=== PATIENT | female | born 1995 ===

== ENCOUNTER 2021-03-04 11:24 | Emergency (ER) | payer SELFPAY ==
[~2021-03-04] VITALS: Ht 152.4 cm; Wt 1.8 kg
[2021-03-04 15:29] LABS: BASO % 0.3 % (0.0-2.0); EOS # 0.1 K/mm3 (0.0-0.7); EOS % 0.6 % (0-4.0); GRAN # 8.5 K/mm3 (1.4-6.5); GRAN % 67.1 % (42.2-75.2); HEMATOCRIT 38.6 % (37.0-47.0); HEMOGLOBIN 12.6 g/dl (12.5-16.0); LYMPH # 3.2 K/mm3 (1.2-3.4); MEAN CELL VOLUME 84 fl (80.0-100.0); MEAN CORPUSCULAR HEMOGLOBIN 28 pg (27.0-31.0); MEAN CORPUSCULAR HGB CONC 33 g/dl (33.0-37.0); MEAN PLATELET VOLUME 10.8 fl (7.4-10.4); MONO # 0.9 K/mm3 (0.1-0.6); MONO % 6.8 % (1.7-9.3); PLATELET COUNT 328 K/mm3 (130-400); RED BLOOD COUNT 4.58 M/mm3 (4.10-5.30); REDCELL DISTRIBUTION WIDTH-CV 12.7 % (11.5-14.5)
[2021-03-04 17:35] LABS: COLLECTION METHOD CLEAN CATCH
[2021-03-04 17:54] LABS: MUCOUS Present (NOT PRESENT); PH 6 (5-8); SQUAMOUS EPITHELIAL 0-2 /hpf (0-10); URINE APPEARANCE Hazy (CLEAR/HAZY); URINE BACTERIA Moderate (NONE SEEN); URINE BILIRUBIN Negative (NEGATIVE); URINE BLOOD Negative (NEGATIVE); URINE COLOR Yellow (YELLOW); URINE GLUCOSE Negative (NEGATIVE); URINE KETONE 2+ (NEGATIVE); URINE LEUKOCYTE ESTERASE Negative (NEGATIVE); URINE NITRATE Negative (NEGATIVE); URINE PROTEIN(semi-quant) Negative (NEGATIVE); URINE UROBILINOGEN Negative (NEGATIVE)
[2021-03-04] MEDS ORDERED: CEFTIN500 MG PO (18:24)
[2021-03-04 19:00] VITALS: BP 102/66; PULSE 64; TEMP 98.3
== END 2021-03-04 19:00 | disposition home or self-care (01) ==
LOC: COL.ER 11:24
PROVIDERS: Physician Assistant
DX: O23.41 Unspecified infection of urinary tract in pregnancy, first trimester (principal); N39.0 Urinary tract infection, site not specified; Z3A.01 Less than 8 weeks gestation of pregnancy
CPT/HCPCS: J7030

== ENCOUNTER 2021-06-17 16:56 | Observation (INO) | payer SELFPAY ==
[2021-06-17] VITALS (7 sets, daily range): BP systolic 107–123; BP diastolic 61–75; PULSE 59–71; TEMP 97.9–98.7
[~2021-06-17] VITALS: Ht 154.9 cm; Wt 59.1 kg
[~2021-06-17 16:56] MED LIST: CEFTIN500 MG PO
--- NOTE | 2021-06-17 17:25 | NUR ---
Patient ambulates to LR2, changed into gown, [facility] doppler- 152bpm. Patient is 21.1 weeks and telugu speaking only. [employer] phone line was used. Patient states "I have had constant back pain since 0700 and nauseated". Patient denies any major complications with /UTI symptoms/constipation. Patient states "about a month ago I had some fluid come out that was clear and then again noticed some on Monday". Denies any current leaking of fluid/vaginal bleeding. Patient is very uncomfortable and can not rest in bed. Plan of care discussed. Lab at bedside to obtain blood. 1745: SVE- closed and amniotest negative. Patient voids and urine obtained for UA.
[2021-06-17 18:04] LABS: HEMOGLOBIN 11.5 g/dl (12.5-16.0); MEAN CELL VOLUME 84 fl (80.0-100.0); MEAN CORPUSCULAR HEMOGLOBIN 28 pg (27-31); MEAN CORPUSCULAR HGB CONC 33 g/dl (33.0-37.0); MEAN PLATELET VOLUME 11.3 fl (7.4-10.4); PLATELET COUNT 284 K/mm3 (130-400); RED BLOOD COUNT 4.14 M/mm3 (4.10-5.30); REDCELL DISTRIBUTION WIDTH-CV 13.7 % (11.5-14.5)
[2021-06-17 18:05] LABS: HEMATOCRIT 34.7 % (37.0-47.0)
--- NOTE | 2021-06-17 18:05 | NUR ---
This RN translates to patient medication and what is being given and patient agrees to plan of care. 1825: This RN given report to Iza Humphrey RN
[2021-06-17 18:20] LABS: ALBUMIN 3.9 gm/dL (3.5-5.0); BILIRUBIN,TOTAL 0.2 mg/dL (0.2-1.2); CALCIUM 9.5 mg/dL (8.4-10.2); CREATININE, serum 0.61 mg/dL (0.57-1.11); POTASSIUM 3.6 mmol/L (3.5-4.5); TOTAL PROTEIN 7.6 gm/dL (6.2-8.1)
[2021-06-17 18:31] LABS: COLLECTION METHOD CLEAN CATCH
[2021-06-17 18:34] LABS: BAND 6 % (0-10); LYMPHOCYTE 10 % (20.0-51.0); NEUTROPHILS 82 % (42.0-75.2); PLATELET ESTIMATE NORMAL (NORMAL)
[2021-06-17 18:38] LABS: MUCOUS Present (NOT PRESENT); PH 6 (5-8); URINE APPEARANCE Cloudy (CLEAR/HAZY); URINE BACTERIA Rare /hpf (NONE SEEN); URINE BILIRUBIN Negative (NEGATIVE); URINE BLOOD Negative (NEGATIVE); URINE COLOR Yellow (YELLOW); URINE GLUCOSE Negative (NEGATIVE); URINE KETONE 2+ (NEGATIVE); URINE LEUKOCYTE ESTERASE Negative (NEGATIVE); URINE NITRATE Negative (NEGATIVE); URINE PROTEIN(semi-quant) 1+ (NEGATIVE); URINE UROBILINOGEN Negative (NEGATIVE)
--- NOTE | 2021-06-17 19:45 | NUR ---
20G IV started in right forearm with 1 attempt. D5LR infusing. Zofran and morphine given, see MAR. Pt asking if she can stay overnight. Educated patient on plan of care to hydrate and try medications and then we will reevaluate.
[2021-06-17] MEDS ORDERED: PRENATAL TABLET PO (19:51)
--- NOTE | 2021-06-17 22:10 | NUR ---
Dr. Mejia at bedside to evaluate patient. [employer] Operator services used. Reviewed plan of care with patient to stay overnight for imaging in the morning, pt verbalized understanding. 2220 - Pt transferred to room 220 with belongings.
--- NOTE | 2021-06-17 23:20 | NUR ---
2320 CARAFATE PO, PROTONIX IV GIVEN AND IV FLUIDS STARTED PER IV PUMP. PT STATES PAIN IS A 6/10. WANTS TO KNOW IF SHE CAN EAT ANYTHING. INSTRUCTED ON NPO.
--- NOTE | 2021-06-18 02:15 | NUR ---
0215-PT VOMITED APPROX 200ML YELLOW EMESIS. COLD COMPRESS TO FOREHEAD. PT C/O PAIN AND NAUSEA. 0225-ZOFRAN GIVEN IV FOR NAUSEA AND MORPHINE THEN GIVEN IV FOR PAIN. MEDICATIONS EXPLAINED TO PT ON TRANSLATION JENSEN OF PHONE.
[2021-06-18 03:40] VITALS: BP 95/59; PULSE 67; TEMP 98.6
[2021-06-18 07:30] VITALS: BP 94/55; PULSE 71; TEMP 97.7
--- NOTE | 2021-06-18 09:00 | NUR ---
US at the bedside.
--- NOTE | 2021-06-18 10:03 | NUR ---
Initial visit attempt; Patient sleeping, Cash Person left card offering God's blessings.
[2021-06-18] MEDS ORDERED: PROTONIX20 MG PO (10:38)
--- NOTE | 2021-06-18 11:30 | NUR ---
Pt reports feeling better with no pain or nausea this morning after eating breakfast.
--- NOTE | 2021-06-18 12:15 | NUR ---
Using a spanish interpreter/translator discharge instructions and follow up care reviewed with pt and at the bedside. Both verbalized an understanding, agreed with the plan and states no questions or concerns at this time.
== END 2021-06-18 12:15 | disposition home or self-care (01) ==
LOC: LDRO 16:56 → LDR 17:37 → OB 22:54 → LDRO 22:59 → OB 23:00
PROVIDERS: Obstetrics & Gynecology; ADMIT Obstetrics & Gynecology
DX: O26.892 Other specified pregnancy related conditions, second trimester (principal); R10.13 Epigastric pain; R11.2 Nausea with vomiting, unspecified; Z3A.21 21 weeks gestation of pregnancy
CPT/HCPCS: OP; C9113; G0378; J2270; J2405; J3480; J7121

== ENCOUNTER 2021-10-26 19:19 | Inpatient (IN) | payer SELFPAY ==
[~2021-10-26] VITALS: Ht 154.9 cm; Wt 67.3 kg
[2021-10-26] VITALS (10 sets, daily range): BP systolic 107–158; BP diastolic 58–101; PULSE 69–89; TEMP 97.8
[~2021-10-26 19:19] MED LIST changes: +PRENATAL TABLET PO; +PROTONIX20 MG PO
--- NOTE | 2021-10-26 20:57 | NUR ---
192 PATIENT HERE FROM HOME BUT SPEAKS NO TRISTANIAN. DISTRICT SALES MANAGER LINE USED. PATIENT STATES THAT CONTRACTIONS STARTED THIS EVENING AND GOT BAD SO CAME TO HOSPITAL. SVE 10/100/0 BULGY BAG NOTED. ASSESSMENT COMPLETED THROUGH DISTRICT SALES MANAGER LINE. DR BAILEY CALLED TO COME TO HOSPITAL FOR DELIVERY. CONTRACTIONS 2 MIN APART AND PALPATE FIRM. PATIENT SCREAMS WITH EACH CONTRACTIONS. ENCOURAGE PATIENT TO BREATH THROUGH CONTRACTION AND NOT PUSH UNTIL DR GETS HERE. FRIEND AND BOYFRIEND AT BEDSIDE ALSO DO NOT SPEAK ENGLIGH. 193 THIS NURSE REMAINS AT BEDSIDE WAITING FOR DR FOR DELIVERY IV STARTED IN LEFT WRIST BY Georgette MENDEZ RN DENYS DODSON. SROM WITH LARGE AMOUNT CLEAR FLUID NOTED. DR BAILEY CALLED AGAIN TO COME FOR DELIVERY. ENCOUARGE PATIENT TO CONTINUE TO NOT PUSH
--- NOTE | 2021-10-26 21:06 | NUR ---
1944 PATIENT CONTINUES TO SCREAM WITH EACH CONTRACTIONS. TRY TO COMMUNICATE WITH PATIENT BUT PATIENT DOES NOT UNDERSTAND. 1947 DR BAILEY AT BEDSIDE. READY FOR DELIVERY. DR BAILEY ATTEMPTS TO COMMUNICATE WITH PATIENT AND FAMILY TO PUSH WITH EACH CONTRACTION. FERRY BOAT CAPTAIN LINE ALSO USED BUT PATIENT DOES NOT UNDERSTAND. FHT 90'S. 1949 VACUUM PLACED AT THIS TIME DUE TO FHT 90 AND PATIENT ISNT UNDERSTANDING OR PUSHING. NO POP OFFS NOTED. WITH ONE PULL NOTED. 1950 BABY BOY BORN AT THIS TIME VIA VACUUM. CORD CLAMPED AND CUT BY AND TO MOMS CHEST. Vincent OKEEFE RN TO RECIEVE BABY FOR CARES. 1951 LIDOCAINE USED AT THIS TIME FOR REPAIR. PATIENT TOLERATES WELL. 1952 PLACENTA DELIVERD AND PITOCIN STARTED AT 333 PER PROTOCOL. FUNDUS FIRM AND BLEEDING WNL. PATIENT TOLERTES FUNDAL MASSAGE. 1954 ALL CONSENTS REVIEWED WITH FERRY BOAT CAPTAIN AND SIGNED BY PATIENT . REPORT GIVEN TO Georgette MENDEZ RN TO ASSUME CATRE OF PATIENT AT THIS TIME
[2021-10-26 21:10] LABS: BASO % 0.2 % (0.0-2.0); EOS % 0.1 % (0.0-4.0); GRAN # 14.3 K/mm3 (1.4-6.5); GRAN % 79.8 % (42.2-75.2); HEMATOCRIT 38.3 % (37.0-47.0); HEMOGLOBIN 12.6 g/dl (12.5-16.0); LYMPH # 2.6 K/mm3 (1.2-3.4); LYMPH % 14.4 % (20.0-51.0); MEAN CELL VOLUME 84 fl (80.0-100.0); MEAN CORPUSCULAR HEMOGLOBIN 28 pg (27-31); MEAN CORPUSCULAR HGB CONC 33 g/dl (33.0-37.0); MEAN PLATELET VOLUME 11.8 fl (7.4-10.4); MONO # 0.9 K/mm3 (0.1-0.6); MONO % 4.9 % (1.7-9.3); PLATELET COUNT 315 K/mm3 (130-400); RED BLOOD COUNT 4.56 M/mm3 (4.10-5.30); REDCELL DISTRIBUTION WIDTH-CV 13.2 % (11.5-14.5)
--- NOTE | 2021-10-26 22:20 | NUR ---
pt able to ambulate to bathroom independently. pt able to void 800 mL urine. Pericare explained and provided. Mesh panties, peripad, and ice pack applied. Pt educated on needing 3 measured voids. Pt able to ambulate to room 208 independently with belongings and FOB.
[2021-10-27 01:13] VITALS: BP 112/72; PULSE 94; TEMP 98.6
[2021-10-27] MEDS ORDERED: IBU800 M1 PO (09:00)
--- NOTE | 2021-10-27 10:03 | NUR ---
Initial visit; Parents thanked for offering congratulations for the of their son. thanked family for choosing our hospital and inquired if they were happy with the care they have received to which the answer was that patient has had wonderful care.
[2021-10-27 12:00] VITALS: BP 102/66; PULSE 80; TEMP 98.1
[2021-10-27 20:00] VITALS: BP 111/64; PULSE 94; TEMP 98.4
[2021-10-28 08:00] VITALS: BP 102/70; PULSE 64; TEMP 97.8
== END 2021-10-28 12:00 | disposition home or self-care (01) | DRG 807 ==
LOC: LDRO 19:19 → OB 19:37 → LDR 19:37 → OB 22:35
PROVIDERS: Obstetrics & Gynecology; ADMIT Obstetrics & Gynecology
PROC: 10D07Z6 Extraction of Products of Conception, Vacuum, Via Natural or Artificial Opening (ICD-10-PCS; principal; 2021-10-26)
PROC: 0HQ9XZZ Repair Perineum Skin, External Approach (ICD-10-PCS; 2021-10-26)
DX: O76 Abnormality in fetal heart rate and rhythm complicating labor and delivery (principal); Z37.0 Single live birth; Z3A.39 39 weeks gestation of pregnancy; O70.0 First degree perineal laceration during delivery
CPT/HCPCS: J2590; J7120